=== PATIENT | male | born 1995 | race Caucasian/White ===

== ENCOUNTER 2023-11-26 14:43 | Emergency (ER) | payer OTHER, SELFPAY ==
[2023-11-26 14:52] VITALS: BP 138/72; PULSE 77; RESP 16; TEMP 36.7; O2SAT 98; BMI 30.8
--- NOTE | 2023-11-26 15:21 | ED_ITS ---
HPI - General Adult General Chief complaint: Fall/Minor Trauma Stated complaint: hip pain Time Seen by Provider: 11/26/23 14:47 History of Present Illness HPI narrative: This 28-year-old male comes in reporting low back pain. He states that he has had low back pain for a long time but things have worsened over the past month or so. He states he did fall about a month ago onto his buttocks and this is where he has pain located primarily. He does report some episodes of pain radiating down his right leg to his foot. But this is not a constant condition. He has been taking ibuprofen without much relief and is not on any other medications. Related Data Previous Rx's ?Medication ?Instructions ?Recorded cyclobenzaprine 10 mg tablet 10 mg PO TID #15 tabs 11/26/23 ketorolac 10 mg tablet 10 mg PO Q8H 5 days #15 tabs 11/26/23 prednisone 10 mg tablets in a dose See Rx Instructions PO .COMPLEX 11/26/23 pack #21 ea Allergies Allergy/AdvReac Type Severity Reaction Status Date / Time Penicillins Allergy Intermediate Verified 11/26/23 14:58 Review of Systems Status of ROS: Reports: 10 or more systems reviewed and unremarkable except as noted in History and below Narrative: Constitutional: No fevers, no weight gain or loss. Eyes: No discharge. No vision changes. HENT: No congestion, no sore throat, no ear pain. Cardiovascular: No chest pain, no palpitations. Respiratory: No shortness of breath, no wheezes, no cough. Gastrointestinal: No abdominal pain, no vomiting, no diarrhea. Genitourinary: No dysuria, no hematuria. Musculoskeletal: Normal range of motion. Skin: No rashes, no pruritis. Neurological: No dizziness, weakness, sensory change, speech change. Endo/Heme/Allergies: No bruising or bleeding. No polydipsia. Pysch: no suicidality, no anxiety, no insomnia. All other systems reviewed and are negative. Exam Narrative: Exam Narrative: Constitutional: Well-developed, well-nourished, no acute distress. HEENT: Normocephalic, atraumatic. Neck: Normal range of motion. Nontender. Supple. Heart: Intact distal pulses. Lungs: No chest discomfort. No wheezes, rhonchi, or rales. Abdomen: Nontender. Back: Normal range of motion. Diffuse pain across the low back. He reports episodes of pain radiating down his right leg at times. Extremities: Normal range of motion. No injury. Skin: Intact. No rash. Warm. No erythema or pallor. Neurologic: No altered sensation. No weakness. Alert and oriented. Psychiatric: No suicidality. No anxiety or depression. No insomnia. Nursing notes and vitals signs are reviewed. Const: Vital Signs, click to edit/add: Vital Signs - 24 hr 11/26/23 14:52 Temperature 98.1 F Pulse Rate [Pulse Oximeter] 77 Respiratory Rate 16 Blood Pressure [Ri t Upper Arm] 138/72 Pulse Oximetry 98 Oxygen Delivery Me thod Room Air Course Vital Signs Vital signs: Initial Vital Signs Temperature 98.1 F 11/26/23 14:52 Temperature Source Temporal Artery Scan 11/26/23 14:52 Pulse Rate 77 11/26/23 14:52 Pulse Rhythm Regular 11/26/23 14:52 Pulse Strength 3+ Normal 11/26/23 14:52 Respiratory Rate 16 11/26/23 14:52 Blood Pressure 138/72 11/26/23 14:52 Blood Pressure Mean 94 11/26/23 14:52 Blood Pressure Position Sitting 11/26/23 14:52 Pulse Oximetry 98 11/26/23 14:52 Oxygen Delivery Method Room Air 11/26/23 14:52 Vital Signs Temperature 98.1 F 11/26/23 14:52 Pulse Rate 77 11/26/23 14:52 Respiratory Rate 16 11/26/23 14:52 Blood Pressure 138/72 11/26/23 14:52 Pulse Oximetry 98 11/26/23 14:52 Oxygen Delivery Method Room Air 11/26/23 14:52 Temperature 98.1 F 11/26/23 14:52 Pulse Rate 77 11/26/23 14:52 Respiratory Rate 16 11/26/23 14:52 Blood Pressure 138/72 11/26/23 14:52 Pulse Oximetry 98 11/26/23 14:52 Oxygen Delivery Method Room Air 11/26/23 14:52 Medical Decision Making MDM Narrative Medical decision making narrative: This patient comes in with worsening low back pain on top of chronic low back pain by his report. He does not report any recent specific injury to trigger this except for a fall that occurred about a month ago. He does have some occasions of pain radiating down his right leg. He is not presenting with mechanism of injury that would mandate imaging at this time. He states that he is interested in a follow-up option with the spine clinic here. He did received prescriptions for Toradol, Flexeril, and prednisone. Discharge Plan Discharge Clinical Impression: Low back pain Patient Disposition: Home, Self-Care Condition: Stable Additional Instructions: Take medication as prescribed. Follow up with MD or spine clinic as needed. For spine clinic appointment call [phone]. Return if worsening. Prescriptions: New cyclobenzaprine 10 mg tablet 10 mg PO TID Qty: 15 0RF ketorolac 10 mg tablet 10 mg PO Q8H 5 Days Qty: 15 0RF prednisone 10 mg tablets,dose pack See Rx Instructions .ROUTE .COMPLEX Qty: 21 0RF Rx Instructions: orally per package directions Stand Alone Forms: [employer] Info Instructions
== END 2023-11-26 15:45 | disposition home or self-care (01) ==
LOC: ED 15:45
PROVIDERS: Emergency Provider Emergency Medicine Emergency Medical Services; PCP Physician Assistant
DX: M54.50 Low back pain, unspecified (principal)
CPT/HCPCS: 99283; 99284

== ENCOUNTER 2024-06-09 11:58 | Emergency (ER) | payer OTHER, SELFPAY ==
[2024-06-09 12:09] VITALS: BP 126/85; PULSE 95; RESP 16; TEMP 36.3; O2SAT 96; BMI 34.0
--- NOTE | 2024-06-09 12:30 | ED_ITS ---
HPI - General Adult General Date Seen: 06/09/24 Chief complaint: Nausea/Vomiting Stated complaint: vomiting/diarrhea Time Seen by Provider: 06/09/24 12:15 History of Present Illness HPI narrative: Patient is a very pleasant 28-year-old, generally healthy, who has had vomiting and diarrhea starting yesterday. He says stools are explosive although nonbloody. He has had vomiting up through about 1/2 hour ago when he says he had to pull off on the side of the road to throw up. He says that his made him come in because he has not urinated since yesterday evening. 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 He denies other significant health history. He quit smoking over , denies significant alcohol use. Denies prior abdominal surgeries. Related Data Home Medications ?Medication ?Instructions ?Recorded ?Confirmed No Known Home Medications 06/09/24 06/09/24 Allergies Allergy/AdvReac Type Severity Reaction Status Date / Time Penicillins Allergy Intermediate Verified 01/18/24 11:16 Review of Systems Status of ROS: Reports: 10 or more systems reviewed and unremarkable except as noted in History and below [facility] Social History Smoking Status: Unknown if ever smoked Do you use any of these nicotine containing products: None How often do you have a drink containing alcohol: never How often do you have six or more drinks on one occasion: Never AUDIT-C Alcohol total score: 0 Non-prescribed substance use: marijuana (any form) Non-prescribed substance use details: former cocaine user Exam Narrative: Exam Narrative: Vital signs reviewed In general, alert, nontoxic young man. Head: Normocephalic, atraumatic. Eyes: Sclera clear. Pupils equal and reactive. ENT: Mucous membranes dry. Neck: Supple without adenopathy. Heart: Regular rate and rhythm without murmur. Lungs: Clear. No increased work of breathing, crackles or wheezes. Abdomen: Soft, nontender to palpation. Extremities: Well perfused, pulses intact. No significant edema. Neurologic: Alert, conversant. Speech fluent, face symmetric. Moves all extremities equally. Skin: Warm, dry well perfused. Affect: Normal. Const: Vital Signs, click to edit/add: Vital Signs - 24 hr 06/09/24 12:09 Temperature 97.4 F L Pulse Rate [Pulse Oximeter] 95 Respiratory Rate 16 Blood Pressure [Ri ght Upper Arm] 126/85 Pulse Oximetry 96 Oxygen Delivery Me thod Room Air Documenting provider has reviewed patient's vital signs: yes Course Course ED Course: Place an IV, give some fluids and Zofran, check some basic labs. Abdomen is benign, I do not think at this point that he needs additional significant workup in the form of imaging but will see how labs look. Suspect symptoms are viral, other diagnostic considerations would be food poisoning, appendicitis, diverticulitis, bowel obstruction, pancreatitis, cholecystitis. Labs are reassuring. His creatinine is 1. White count is normal, does have a left shift with 80% neutrophils. Remainder of his metabolic panel is entirely normal as are LFTs. His viral swab is positive for COVID. He was sick a couple of weeks ago with some GI symptoms. Hard to tell whether the COVID is residual from that illness or new today. 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 He had 2 L of normal saline, feels improved. Zofran, no further vomiting. I am sending him home with Evette, return for significant abdominal pain, high fevers, bloody stools or other worsening. Anticipate gradual improvement over the next couple days. Primary care follow-up if not improving in that time frame. Vital Signs Vital signs: Initial Vital Signs Temperature 97.4 F L 06/09/24 12:09 Temperature Source Temporal Artery Scan 06/09/24 12:09 Pulse Rate 95 06/09/24 12:09 Respiratory Rate 16 06/09/24 12:09 Blood Pressure 126/85 06/09/24 12:09 Blood Pressure Mean 98 06/09/24 12:09 Blood Pressure Position Sitting 06/09/24 12:09 Pulse Oximetry 96 06/09/24 12:09 Oxygen Delivery Method Room Air 06/09/24 12:09 Vital Signs Temperature 97.4 F L 06/09/24 12:09 Pulse Rate 95 06/09/24 12:09 Respiratory Rate 16 06/09/24 12:09 Blood Pressure 126/85 06/09/24 12:09 Pulse Oximetry 96 06/09/24 12:09 Oxygen Delivery Method Room Air 06/09/24 12:09 Temperature 97.4 F L 06/09/24 12:09 Pulse Rate 95 06/09/24 12:09 Respiratory Rate 16 06/09/24 12:09 Blood Pressure 126/85 06/09/24 12:09 Pulse Oximetry 96 06/09/24 12:09 Oxygen Delivery Method Room Air 06/09/24 12:09 Medications Administered Medications: Discontinued Medications Generic Name Dose Route Start Last Admin Trade Name Freq PRN Reason Stop Dose Admin Sodium Chloride 1,000 mls @ 1,000 mls/hr 06/09/24 12:30 06/09/24 13:31 0.9 % Sodium Chloride 1000 Ml IV 06/09/24 13:29 Infused .Q1H MEAGAN Infusion Sodium Chloride 1,000 mls @ 1,000 mls/hr 06/09/24 13:30 06/09/24 14:17 0.9 % Sodium Chloride 1000 Ml IV 06/09/24 14:29 Infused .Q1H MEAGAN Infusion Ondansetron HCl 4 mg 06/09/24 12:20 06/09/24 12:32 Ondansetron 2 Mg/Ml Inj IVP 06/09/24 12:21 4 mg ONCE ONE Administration Medical Decision Making Lab Data Labs: Lab Results 06/09/24 06/09/24 Range/Units 12:15 12:20 WBC 8.17 (4.50-11.00) K/uL RBC 5.06 (4.30-5.90) m/uL Hgb 15.5 (13.5-17.5) gm/dL Hct 45.8 (37.0-53.0) % MCV 91 (80-100) fL MCH 31 (26-34) pg MCHC 34 (32-36) gm/dL RDW Coeff of Lucila 11.9 (11.5-15.5) % Plt Count 244 (140-440) K/uL Neut % (Auto) 80.4 H (42.0-72.0) % Lymph % (Auto) 8.6 L (20-44) % [place] % (Auto) 9.7 (0.0-11.0) % Eos % (Auto) 0.2 (0.0-7.0) % Baso % (Auto) 0.1 (0.0-3.0) % Neut # (Auto) 6.60 (1.7-7.0) K/uL Lymph # (Auto) 0.70 L (0.90-2.90) K/uL [place] # (Auto) 0.80 (0.00-0.90) K/UL Eos # (Auto) 0.02 (0.00-0.50) K/uL Baso # (Auto) 0.01 (0.00-0.30) K/uL Abs Immat Gran (auto) 0.08 (0.00-0.30) K/uL Imm/Tot Granulo (auto) 1.0 % Sodium 135 (135-149) mmol/L Potassium 3.8 (3.6-5.1) mmol/L Chloride 102 (96-114) mmol/L Carbon Dioxide 24 (20-32) mmol/L Anion Gap 9 (7-15) mEq/L BUN 17 (5-24) mg/dL Creatinine 1.0 (0.5-1.5) mg/dL Estimated Creat Clear 109.00 Estimated GFR 104 ml/min Glucose 112 (60-115) mg/dL Calcium 9.0 (8.4-10.6) mg/dL Total Bilirubin 1.3 (0.1-1.5) mg/dL Direct Bilirubin 0.3 (0.0-0.5) mg/dL AST 28 (12-35) U/L ALT 49 (4-50) U/L Alkaline Phosphatase 66 (40-150) U/L Total Protein 7.6 (6.0-8.3) g/dL Albumin 4.7 (3.3-5.0) g/dL SARS-CoV-2 (PCR) POSITIVE SARS-CoV-2 A (Negative) Influenza Type A (PCR) Negative PCR FLU A (Negative) Influenza Type B (PCR) Negative PCR FLU B (Negative) RSV (PCR) Negative PCR RSV (Negative) Discharge Plan Discharge Clinical Impression: COVID-19 Patient Disposition: Home, Self-Care Condition: Improved Instructions: COVID-19 (Coronavirus Disease 2019) (ED) Additional Instructions: Your COVID test is positive. It is difficult to know for sure whether this represents new infection right now or whether you may have had COVID a couple weeks ago when you were sick. To be on the safe side, I would suggest that we keep you home from work for a few days. You can use Zofran if needed for nausea or vomiting. Make sure you are saying hydrated with liquids such as Gatorade. If you have high fevers, significant abdominal pain, bloody stools or other worsening, cannot manage vomiting despite treatment at home, feel very short of breath, return for re-evaluation. Primary follow up if not improving over the next few days. Prescriptions: No Action No Known Home Medications Follow Up/Referrals: Macey Pride PA-C [Primary Care Provider] - Stand Alone Forms: [email or web address] Info Instructions
[2024-06-09] MEDS: 0.9 % SODIUM CHLORIDE 1000 ml 1,000 ML IV ×2 (12:31→13:32)
[2024-06-09] MEDS: ONDANSETRON 2 MG/ML inj 4 MG IVP (12:32)
[2024-06-09 12:54] LABS: Basophils Absolute Auto 0.01 K/uL (0.00-0.30); Basophils Percent Auto 0.1 % (0.0-3.0); Eosinophils Absolute Auto 0.02 K/uL (0.00-0.50); Eosinophils Percent Auto 0.2 % (0.0-7.0); Hematocrit 45.8 % (37.0-53.0); Hemoglobin* 15.5 gm/dL (13.5-17.5); Immature Granulocytes Abs Auto 0.08 K/uL (0.00-0.30); Lymphocytes Percent Auto 8.6 % (20-44); Mean Corpuscular HGB Conc 34 gm/dL (32-36); Mean Corpuscular Hemoglobin 31 pg (26-34); Mean Corpuscular Volume 91 fL (80-100); Monocytes Percent Auto 9.7 % (0.0-11.0); Neutrophils Percent Auto 80.4 % (42.0-72.0); Platelet Count* 244 K/uL (140-440); RDW Coefficient of Variation % 11.9 % (11.5-15.5); Red Blood Count 5.06 m/uL (4.30-5.90); White Blood Count* 8.17 K/uL (4.50-11.00)
[2024-06-09 12:56] LABS: Albumin* 4.7 g/dL (3.3-5.0)
[2024-06-09 12:57] LABS: Chloride* 102 mmol/L (96-114); Potassium* 3.8 mmol/L (3.6-5.1); Slide Review Reflex No; Sodium* 135 mmol/L (135-149)
[2024-06-09 12:59] LABS: Anion Gap 9 mEq/L (7-15); Aspartate Amino Transferase* 28 U/L (12-35); Bilirubin Direct* 0.3 mg/dL (0.0-0.5); Bilirubin Total* 1.3 mg/dL (0.1-1.5); Blood Urea Nitrogen* 17 mg/dL (5-24); Carbon Dioxide* 24 mmol/L (20-32); Estimated Glomerular Filt Rate 104 ml/min; Total Protein* 7.6 g/dL (6.0-8.3)
[2024-06-09 13:00] LABS: Alanine Aminotransferase* 49 U/L (4-50); Alkaline Phosphatase* 66 U/L (40-150); Glucose* 112 mg/dL (60-115)
[2024-06-09 13:02] LABS: PCR FLU A Negative PCR FLU A (Negative); PCR FLU B Negative PCR FLU B (Negative); PCR RSV Negative PCR RSV (Negative); SARS PCR* POSITIVE SARS-CoV-2 (Negative)
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
== END 2024-06-09 14:21 | disposition home or self-care (01) ==
LOC: ED 13:26
PROVIDERS: Emergency Provider Emergency Medicine; PCP Physician Assistant
DX: U07.1 COVID-19 (principal)
CPT/HCPCS: 36415; 80048; 80076; 85025; 87631; 96361; 96374; 99284; J2405; J7030

== ENCOUNTER 2025-04-11 19:42 | Emergency (ER) | payer BC, SELFPAY ==
--- OUTSIDE RECORDS SUMMARY | 2025-04-11 19:44 | XMS_ITS | Clinical Summary ---
Author Organization [employer] [facility] [employer] [facility] Address [facility] [place] [address] Care Team Providers Care Supervisor Jewelry Department Name Role Phone Macey Pride Primary Care Provider [phone] Allergies Active Allergy Reactions Criticality Noted Date Comments Penicillins *Unknown - Pt Doesn' t Remember 06/07/2018 Pt states it affected his liver Medications Ventolin HFA 90 mcg/actuation inhalerIndication s:Mild intermittent asthma without complication (HC) INHALE 1-2 PUFFS BY MOUTH EVERY 4 HOURS IF NEEDED. 18 g 11 04/14/2021 Active ibuprofen (ADVIL; MOTRIN) 200 mg tablet Take 400-600 mg by mouth every 6 hours if needed for Pain. Active Active Problems Problem Noted Date Diagnosed Date Inguinal hernia, right 10/27/2024 Closed fracture of tooth 06/28/2023 Failure of [...] infection 04/11/202106/2023 Mild intermittent asthma without complication 02/22/20 15 02/26/2024 Encounters Date Type Department Care Team Description 04/09/2025 3:30 PM RADIO ELECTRICIAN Ancillary Procedure [facility] [address] [place] [address] Arrived 04/09/2025 Travel 03/29/2025 9:50 AM RADIO ELECTRICIAN Office Visit [facility] [address] [place] [address] Macey Pride PA [facility] Med (Consultation for WORK COMP DOI: 2 months ago 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 ) 03/28/2025 7:10 PM RADIO ELECTRICIAN - 03/28/2025 7:50 PM RADIO ELECTRICIAN Emergency [facility] [address] [place] [address] Ibeth Lazo DO Pain of right hand (Primary Dx) Discharge Disposition: Home Self Care 03/28/2025 Travel 02/02/2025 Telephone [facility] [address] [place] [address] Macey Pride PA Questions (emergency room) 01/31/2025 4:01 PM CDT - 01/31/2025 4:51 PM CDT Emergency [facility] [address] [place] [address] Israel Mariano PA Sprain of tibiofibular ligament of right ankle, initial encounter (Primary Dx) Discharge Disposition: Home Self Care 01/31/2025 Travel from Last 3 Months Immunizations Immunization Administration Dates Next Due AMB Influenza, IIV3 [...] Types Packs/Day Years Used Date Smoking Tobacco: Some Days Cigarettes Smokeless Tobacco: Former Chew Tobacco Cessation:Ready to Q uit: Not Asked; Counseling Given: Not Answered Alcohol Use Standard Drinks/Week Comments Not Currently 0 (1 standard drink = 0.6 oz pur e alcohol) 1-2 beers per day PHQ-2 Answer Date Recorded PHQ-2 TOTAL SCORE 0 03/03/2020 Social Connections Answer Date Recorded Do you often feel lonely or isolated from those around you? 0 03/29/2025 Financial Resource Strain Answer Date R ecorded Difficulty of Paying Living Expenses 3 03/29/2025 Difficulty of Paying Living Expenses Not on file 03/29/2025 Food Insecurity Answer Date Recorded Do you worry your food will run out before you are able to buy more? 1 03/29/2025 Transportation Needs Answer Date Record ed Does lack of transportation keep you from medica l appointments? 1 03/29/2025 Does lack of transportation keep you from work, meetings or getting things that you need? 1 03/29/2025 Housing Stability Answer Date Recorded What is your housing situation today? 1 03/29/2025 Interpersonal Safety Answer Date Record ed Are you being hit, kicked, p ushed or yelled at (see row info)? No 03/28/2025 Interpersonal Safety Abuse 12 - 18 Not on file 03/28/2025 Interpersonal Safety Ambulatory Vulnerability No t on file 03/28/2025 Utilities Answer Date Recorded Do you have trouble paying f or utilities (for example, heat, electricity, water, phone)? 1 03/29/2025 Sex and Gender Information Value Date Recorded Sex Assigned at Not on file Legal Sex Male 5:23 AM RADIO ELECTRICIAN Gender Identity Not on file Sexual Orientation Not on file Obstetrics History Last Filed Vital Signs Vital Sign Reading Time Taken Comments Blood Pressure 138/84 03/29/2025 9:49 AM RADIO ELECTRICIAN Pulse 76 03/29/2025 9:49 AM RADIO ELECTRICIAN Temperature 36.8 C (98.3 F) 03/28/2025 5:03 PM RADIO ELECTRICIAN Respiratory Rate 14 03/28/2025 5:03 PM RADIO ELECTRICIAN Oxygen Saturation 98% 03/29/2025 9:49 AM RADIO ELECTRICIAN Inhaled Oxygen Concentration - - Weight 108.6 kg (239 lb 6.4 oz) 03/28/2025 5:03 PM RADIO ELECTRICIAN Height 182.9 cm (6') 03/28/2025 5:03 PM RADIO ELECTRICIAN Body Mass Index 32.47 03/28/2025 5:03 PM RADIO ELECTRICIAN Plan of Treatment Health Maintenance Due Date Last Done Comments HIV for age 15-65 2009 Hepatitis C screening for ag e 18-79 2012 Hepatitis B series for 19+ ( 1 of 3 - 19+ 3-dose series) 2013 Pneumococcal series for age 6-49 (1 of 2 - PCV) 2013 Depression screening for age 12+ 03/03/2021 03/03/2020, 01/08/2019, 10/18/2017, Additional history exists HPV series for age 9-45 (1 - 3-dose SCDM series) 2021 BMI (ht and wt on same day) for age 18+ 03/21/2024 03/21/2023, 09/27/2020, 05/18/2020, Additional history exists Influenza Vaccine (#1) 2025 3, 03/06/2012, 02/26/2011, Additional history exists Tetanus booster 06/07/2028 06/07/2018, 07/26, 10/31/2005 RSV vaccine for adults or (1 - 1-dose 75+ series) 2069 Procedures Procedure Name Priority Date/Time Associated Diagnosis Comments XR HAND 3 VIEWS LEFT STAT 03/28/2025 5:44 PM RADIO ELECTRICIAN XR ANKLE 3 VIEWS RIGHT STAT 01/31/2025 3:52 PM CDT from Last 3 Months Results * XR HAND 3 VIEWS LEFT (03/28/2025 5:44 PM RADIO ELECTRICIAN) Anatomical Region Laterality Modality HANDS, HAND L Digital Radiogra phy 03/28/2025 6:10 PM RADIO ELECTRICIAN Narrative 03/28/2025 6:10 PM RADIO ELECTRICIAN For Patients: As a result of the Cures Act, medical imaging exams and procedure reports are released immediately into your electronic medical record. You may view this report before your referring provider. If you have questions, please contact your health care provider. Indication: Trauma. Technique: Right hand, 3 views. Comparison: None. Findings/Impression: Bones: Alignment is normal. No displaced fractures or bone lesions. Joint spaces: Unremarkable. Soft tissues: Unremarkable. Dictated by Hugo Lindsey MD @ 03/28/2025 6:10:01 PM (Electronically Signed) Procedure Note Hugo Lindsey MD - 03/28/2025 For Patients: As a result of the Cures Act, medical imagingexams and procedure reports are released immediately into your electronicmedical record. You may view this report before your referring provider.If you have questions, please contact your health care provider. Indication: Trauma. Technique: Right hand, 3 views. Comparison: None. Findings/Impression: Bones: Alignment is normal. No displaced fractures or bone lesions. Joint spaces: Unremarkable. Soft tissues: Unremarkable. Dictated by Hugo Lindsey MD @ 03/28/2025 6:10:01 PM (Electronically Signed) us Ibeth Vargas DO GENERAL IMAGI NG Final Result * XR ANKLE 3 VIEWS RIGHT (01/31/2025 3:52 PM CDT) Anatomical Region Laterality Modality ANKLES, ANKLE R Digital Radiogra phy 01/31/2025 4:15 PM CDT Narrative 01/31/2025 4:15 PM CDT For Patients: As a result of the Cures Act, medical imaging exams and procedure reports are released immediately into your electronic medical record. You may view this report before your referring provider. If you have questions, please contact your health care provider. Indication: Injury and pain Technique: Right ankle 3 views Comparison: None Findings: Bones: Alignment is normal. No fractures or bone lesions. Joint spaces: Unremarkable. Soft tissues: Unremarkable. Impression: No sign of acute injury. Dictated by Franklin Elias MD @ 01/31/2025 4:15:24 PM (Electronically Signed) Procedure Note Franklin Elias MD - 01/31/2025 For Patients: As a result of the Cures Act, medical imagingexams and procedure reports are released immediately into your electronicmedical record. You may view this report before your referring provider.If you have questions, please contact your health care provider. Indication: Injury and pain Technique: Right ankle 3 views Comparison: None Findings: Bones: Alignment is normal. No fractures or bone lesions. Joint spaces: Unremarkable. Soft tissues: Unremarkable. Impression: No sign of acute injury. Dictated by Franklin Elias MD @ 01/31/2025 4:15:24 PM (Electronically Signed) [facility] Luann l Result from Last 3 Months Insurance [facility] [place] [id number] [id number] Advance Directives * Full Code (Latest Code [...] Preferences, Provider to review later Care Teams Supervisor Jewelry Department Relationship Specialty Start Date End Date Macey Pride [place] [address] PCP - General Physician Hot Box Operator 01/05/23
[2025-04-11 19:47] VITALS: BP 152/89; PULSE 82; RESP 16; TEMP 36.8; O2SAT 98; BMI 32.1
--- NOTE | 2025-04-11 20:25 | ED_ITS ---
HPI - Abdominal Pain General Chief Complaint: Abdominal Pain Stated Complaint: hernia pain Time Seen by Provider: 04/11/25 20:15 History of Present Illness HPI narrative: This 29-year-old male comes in because of pain from a hernia in his right lower quadrant. He states that he was sitting and noticed a painful bulge in his right lower inguinal region up closer to the iliac crest. He made plans to come in here because the pain was intense. He did press gently on this area and the herniation reduced and now he has no pain. He states that he knows that he has had a hernia there but not any symptoms like this. Related Data Home Medications ?Medication ?Instructions ?Recorded ?Confirmed No Known Home Medications 06/09/2403/27 Allergies Allergy/AdvReac Type Severity Reaction Status Date / Time Penicillins Allergy Intermediate Verified 01/18/24 11:16 Review of Systems Status of ROS Reports: 10 or more systems reviewed and unremarkable except as noted in History and below Narrative Constitutional: No fevers, no weight gain or loss. Eyes: No discharge. No vision changes. HENT: No congestion, no sore throat, no ear pain. Cardiovascular: No chest pain, no palpitations. Respiratory: No shortness of breath, no wheezes, no cough. Gastrointestinal: No vomiting, no diarrhea. Episode of abdominal pain as described above. Genitourinary: No dysuria, no hematuria. Musculoskeletal: Normal range of motion. Skin: No rashes, no pruritis. Neurological: No dizziness, weakness, sensory change, speech change. Endo/Heme/Allergies: No bruising or bleeding. No polydipsia. Pysch: no suicidality, no anxiety, no insomnia. All other systems reviewed and are negative. 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 HEENT: Normocephalic, atraumatic. Neck: Normal range of motion. Nontender. Supple. Heart: Regular. No murmurs. Normal rate. Intact distal pulses. Lungs: Clear to auscultation. No chest discomfort. No wheezes, rhonchi, or rales. Abdomen: Normal bowel sounds. Nontender. No rebound tenderness. I am not able to palpate a hernia. He states that it is occurring in the superior aspect of the right inguinal region. This is up closer to his iliac crest. Genitalia: Deferred. Back: No midline tenderness. Normal range of motion. Extremities: Normal range of motion. No injury. Skin: Intact. No rash. Warm. No erythema or pallor. Neurologic: No altered sensation. No weakness. Alert and oriented. Psychiatric: No suicidality. No anxiety or depression. No insomnia. Nursing notes and vitals signs are reviewed. Const: Vital Signs, click to edit/add: Vital Signs - 24 hr 04/11/25 19:47 Temperature 98.3 F Pulse Rate [Pulse Oximeter] 82 Respiratory Rate 16 Blood Pressure [Le ft Upper Arm] 152/89 H Pulse Oximetry 98 Oxygen Delivery Me thod Room Air Course Vital Signs Vital signs: Initial Vital Signs Temperature 98.3 F 04/11/25 19:47 Temperature Source Temporal Artery Scan 04/11/25 19:47 Pulse Rate 82 04/11/25 19:47 Respiratory Rate 16 04/11/25 19:47 Blood Pressure 152/89 H 04/11/25 19:47 Blood Pressure Mean 110 H 04/11/25 19:47 Blood Pressure Position Sitting 04/11/25 19:47 Pulse Oximetry 98 04/11/25 19:47 Oxygen Delivery Method Room Air 04/11/25 19:47 Vital Signs Temperature 98.3 F 04/11/25 19:47 Pulse Rate 82 04/11/25 19:47 Respiratory Rate 16 04/11/25 19:47 Blood Pressure 152/89 H 04/11/25 19:47 Pulse Oximetry 98 04/11/25 19:47 Oxygen Delivery Method Room Air 04/11/25 19:47 Temperature 98.3 F 04/11/25 19:47 Pulse Rate 82 04/11/25 19:47 Respiratory Rate 16 04/11/25 19:47 Blood Pressure 152/89 H 04/11/25 19:47 Pulse Oximetry 98 04/11/25 19:47 Oxygen Delivery Method Room Air 04/11/25 19:47 MDM - Abdominal Pain MDM Narrative Medical decision making narrative: This patient had an episode of abdominal pain and a protrusion because of a hernia. This is spontaneously reduced prior to arrival. Currently he is asymptomatic. I advised him to follow-up with surgery clinic for ongoing management. I had also advised him to return if symptoms are recurrent. He is okay to be discharged home. I did provide an [employer] prescription for Toradol. Discharge Plan Discharge Clinical Impression: Inguinal hernia Patient Disposition: Home, Self-Care Condition: Stable Additional Instructions: Take medication as needed and directed. Follow up with surgery clinic for ongoing management. Call [phone] for appointment. Return if worsening. Prescriptions: No Action No Known Home Medications Follow Up/Referrals: Macey Pride PA-C [Primary Care Provider, Family Practice] Stand Alone Forms: [employer] Info Instructions
[2025-04-11 20:48] VITALS: BP 135/74; PULSE 79; RESP 16; TEMP 36.8; O2SAT 98
[2025-04-11 20:49] VITALS: BP 135/74; PULSE 79; RESP 16; TEMP 36.8
== END 2025-04-11 20:49 | disposition home or self-care (01) ==
LOC: ED 20:37
PROVIDERS: Emergency Provider Emergency Medicine Emergency Medical Services; PCP Physician Assistant
DX: K40.90 Unilateral inguinal hernia, without obstruction or gangrene, not specified as recurrent (principal)
CPT/HCPCS: 99283; 99284